=== PATIENT | female | born 1960 | race Caucasian/White ===

== ENCOUNTER → 2023-10-21 12:42 | Outpatient (REF) | payer OTHER, SELFPAY | LOC: WDC 12:42 | PROVIDERS: ATTENDING PHYSICIAN Obstetrics & Gynecology Gynecology; FAMILY PHYSICIAN Nurse Practitioner Primary Care | DX: Z12.31 Encounter for screening mammogram for malignant neoplasm of breast (principal) | CPT/HCPCS: 77063; 77067 ==

== ENCOUNTER → 2024-03-21 07:13 | Outpatient (REF) | payer OTHER, SELFPAY | LOC: RAD 07:13 | PROVIDERS: ATTENDING PHYSICIAN Nurse Practitioner Family | DX: R17 Unspecified jaundice (principal); Z15.09 Genetic susceptibility to other malignant neoplasm | CPT/HCPCS: 76700 ==

== ENCOUNTER → 2024-10-03 12:45 | Outpatient (REF) | payer SELFPAY | LOC: RAD 12:45 | PROVIDERS: ATTENDING PHYSICIAN Nurse Practitioner Primary Care | DX: E78.2 Mixed hyperlipidemia (principal) | CPT/HCPCS: 75571 ==

== ENCOUNTER 2024-10-29 06:21 | Day surgery (SDC) | payer OTHER, SELFPAY | END 2024-10-29 15:22 | disposition home or self-care (01) | LOC: GI 06:21 | PROVIDERS: ATTENDING PHYSICIAN Internal Medicine Gastroenterology; FAMILY PHYSICIAN Nurse Practitioner Primary Care | DX: K63.5 Polyp of colon (principal); K57.30 Diverticulosis of large intestine without perforation or abscess without bleeding; K64.8 Other hemorrhoids; K29.50 Unspecified chronic gastritis without bleeding; K31.89 Other diseases of stomach and duodenum; Z15.09 Genetic susceptibility to other malignant neoplasm | CPT/HCPCS: 45380; 43239; 88305; 88342 ==

== ENCOUNTER → 2024-11-28 13:23 | Outpatient (REF) | payer OTHER, SELFPAY | LOC: WDC 13:23 | PROVIDERS: ATTENDING PHYSICIAN Obstetrics & Gynecology Gynecology; FAMILY PHYSICIAN Nurse Practitioner Primary Care | DX: M81.0 Age-related osteoporosis without current pathological fracture (principal); Z12.31 Encounter for screening mammogram for malignant neoplasm of breast | CPT/HCPCS: 77063; 77067; 77080 ==

== ENCOUNTER → 2025-01-11 12:41 | Outpatient (REF) | payer OTHER, SELFPAY | LOC: RAD 12:41 | PROVIDERS: ATTENDING PHYSICIAN Nurse Practitioner Primary Care | DX: M54.41 Lumbago with sciatica, right side (principal); M81.0 Age-related osteoporosis without current pathological fracture | CPT/HCPCS: 72110 ==